=== PATIENT | male | born 1955 | race Caucasian/White ===

== ENCOUNTER 2021-03-02 14:46 | Inpatient (IN) | payer OTHER ==
[~2021-03-02 14:46] MED LIST: BUDE10.2 IH; CARV12.5 PO; CEFP200T PO; CLOP75TA PO; CRESTOR5 MG PO; DIGO250T3 PO; FURO20TA3 PO; FURO40TA4 PO; LIRA0.6P2 SQ; MAGN250T10 PO; MAGN250T2 PO; METF10007 PO; METR-34 PO; PHEN37.53 PO; POTA20TA4 PO; PROVENTIL HFA6.7 GM IH; SACU1TAB7 PO; WARF10TA PO
[2021-03-02] MEDS ORDERED: ACETAMINOPHEN 650 MG SUPP.RECT. PR PRN (15:15)
[2021-03-02] MEDS ORDERED: MORPHINE SULFATE 4 MG/ML VIAL. IV PRN (15:15)
[2021-03-02] MEDS ORDERED: LORazepam INTENSOL 2 MG/ML ORAL.CONC SL PRN (15:15)
[2021-03-02] MEDS ORDERED: IV NORMAL SALINE 1000ML BAG 1,000 ML IV SCH (16:00)
[2021-03-02] MEDS: MORPHINE SULFATE 30 ML IV PRN ×2 (16:09→19:57)
[2021-03-02] MEDS: ATROPINE 1% OPHTH SOLUTION 5ML BOTTLE. SL PRN ×2 (16:14→17:25)
[2021-03-02] MEDS ORDERED: FUROSEMIDE 20 MG/2 ML VIAL. IVP PRN (18:00)
[2021-03-02 19:35] VITALS: BP 117/58
--- NOTE | 2021-03-02 21:49 | PDOC1 ---
History and Physical Date of Admission Date of Admission DATE: 03/02/21 TIME: 16:49 Identification/Chief Complaint Chief Complaint Vfib arrest Source Source: Caregiver, Chart review History of Present Illness History of Present Illness Mr. Velez, is a 65-year-old male w/ PMhx CAD s/p stenting, ETOH abuse, COPD, narcolepsy, DM2 who was initially transferred to [facility] from [facility] [place] there for over 30 minutes via bystander CPR, then EMS arrived, they found the patient to be in V. fib and underwent unsynchronized cardioversion twice and then was subsequently found in PEA. He received 3 rounds of epi prior to arrival to ED around 1100 on 02/28/2021. Arrived with a Jm device in place which was providing compressions with EMS providing respirations via bagging. The patient was pulseless at first check at [facility] ED, was given epinephrine and CPR, then patient did appear to develop an organized rhythm. On repeat pulse check he did have a pulse. He maintained a pulse for some period of time. He then lost a pulse went back into PEA. He was given additional rounds of epinephrine and compressions. Levophed drip was started. A 7.5 endotracheal tube was placed with no difficulty. Obtained pulse and organized rhythm again. He had not responded. His corneal reflexes were absent. His pupils were fixed. He was transferred to [place] on 02/28/21 in critical condition with family noting he had made it clear he was a DNR/DNI. On 03/01 he was off Levophed. Sedation weaned on vent and family discussed with internal medicine attending and neurology and asked for comfort measures and extubation. On 03/02 is seen on medical darling, no meaningful responses today. Non-reactive pupils, no corneal reflex. Rapid shallow breathing, no cough. Afebrile. He is receiving q 1 hour morphine and prn tylenol for fever. Family bedside. Past Medical History Cardiovascular: CAD, HTN, MT Pulmonary: COPD GI: Other Psych: Anxiety, Depression Endocrine: Diabetes Past Surgical History Past Surgical History: Other Family History Family History: Diabetes Social History Smoke: <1 pack per day ALCOHOL: other Drugs: None Current Medications Current Medications Current Medications Acetaminophen (Tylenol Supp) 650 mg PRN Q4HRS PRN HI MILD PAIN / TEMP > 100.3'F; Start 03/02/21 at 15:15 Lorazepam (Ativan Intensol) 2 mg PRN Q4HRS PRN SL ANXIETY / AGITATION Last administered on 03/02/21at 17:25; Start 03/02/21 at 15:15 Atropine Sulfate (Isopto Atropine) 1 drop PRN Q2HR PRN SL SECRETIONS Last administered on 03/02/21at 17:25; Start 03/02/21 at 15:15 Morphine Sulfate (Morphine Sulfate) 4 mg PRN Q1HR PRN IV PAIN; Start 03/02/21 at 15:15 Scopolamine (Transderm-Scop) 1 patch Q3DAYS TD ; Start 03/05/21 at 09:00 Sodium Chloride 1,000 ml @ 25 mls/hr Q24H IV Last administered on 03/02/21at 16:07; Start 03/02/21 at 16:00 Morphine Sulfate 30 ml @ 0 mls/hr CONT PRN PRN IV PER PROTOCOL Last administered on 03/02/21at 19:57; Start 03/02/21 at 16:00 Furosemide (Lasix) 20 mg PRN DAILY PRN IVP FLUID RETENTION Last administered on 03/02/21at 18:11; Start 03/02/21 at 18:00 Active Scripts Active Reported Cefpodoxime Proxetil 200 Mg Tablet 1 Tab PO BID Metronidazole 500 Mg Tablet 1 Tab PO BID Proventil Hfa Inhaler (Albuterol Sulfate) 6.7 Gm Hfa.aer.ad 1 Puff IH PRN Q6HRS PRN Symbicort 160-4.5 Mcg Inhaler (Budesonide/Formoterol Fumarate) 10.2 Gm Hfa.aer.ad 2 Puff IH BID Magnesium (Magnesium Oxide) 250 Mg Tablet 500 Mg PO HS Magnesium 250 Mg Tablet 250 Mg PO DAILY08 Potassium Chloride (Potassium Chloride) 20 Meq Tablet.er 40 Meq PO HS Potassium Chloride (Potassium Chloride) 20 Meq Tablet.er 20 Meq PO DAILY08 Furosemide 40 Mg Tablet 1 Tab PO DAILY16 Furosemide 20 Mg Tablet 1 Tab PO DAILY Metformin Hcl 1,000 Mg Tablet 1 Tab PO BID Entresto 49 mg-51 mg Tablet (Sacubitril/Valsartan) 1 Each Tablet 1 Each PO BID Coreg (Carvedilol) 12.5 Mg Tablet 1 Tab PO BID Crestor (Rosuvastatin Calcium) 5 Mg Tablet 5 Mg PO HS Clopidogrel (Clopidogrel Bisulfate) 75 Mg Tablet 1 Tab PO DAILY16 Jantoven (Warfarin Sodium) 10 Mg Tablet 10 Mg PO DAILY16 Digoxin 250 Mcg Tablet 1 Tab PO DAILY16 Victoza 3-Servando (Liraglutide) 0.6 Mg/0.1 Ml Pen.injctr 1.2 Mg SQ DAILYBFRSUP Phentermine Hcl 37.5 Mg Capsule 2 Cap PO DAILY10 Allergies Allergies: Coded Allergies: No Known Drug Allergies (Unverified , 06/29/16) ROS Review of System Not responsive, unable to obtain ROS Physical Exam General: mild distress HEENT: Atraumatic, Mucous membr. moist/pink Lungs: Other (Left sided rhonchi) Heart: S1S2, RRR, no thrills, no rubs Abdomen: Normal bowel sounds, Soft, No tenderness, No hepatosplenomegaly, No masses Rectal Exam: not examined Extremities: No clubbing, No cyanosis, No edema, Normal pulses, No tenderness/swelling Skin: No rashes, No breakdown, No significant lesion Neuro: Other (Positive babinski, negative gag, no pupillary reflex) Psych/Mental Status: Other (Not responsive) Vitals Vitals Vital Signs Date Time Temp Pulse Resp B/P (MAP) Pulse Ox O2 Delivery O2 Flow Rate FiO2 03/02/21 19:57 18 03/02/21 19:35 98.1 100 117/58 (77) 90 Nasal Cannula 2.0 98.1 VTE Prophylaxis Ordered VTE Prophylaxis Devices: No VTE Pharmacological Prophylaxi: No Assessment/Plan Assessment/Plan A/P Cardiac arrest - V fib arrest in field, with hypotension. On comfort measures with plan to transition to inpatient hospice referral today. PRN morphine for respiratory distress, ativan SL for agitation, seizures, atropine SL for secretions Acute systolic CHF - was on levophed, weaned. PRN O2 and PRN lasix Dm2, poor control, started insulin gtt, stopped for comfort measures COPD - prn nebs for respiratory distress prior alcohol abuse - ativan prn withdrawal seizures Dispo - inpatient hospice appropriate. Will need increase in morphine with increased respirations Justifications for Admission Other Justification KLEBER ANDREWS MD March 02, 2021 21:49
--- NOTE | 2021-03-03 00:44 | NUR ---
This RN was rounding just before 8 p.m., upon entering the room to replace the [employer] pump the patient was found unresponsive. This RN checked for a pulse at this time, was unable to find a carotid, radial or dorsalis pedis pulse at this time. This RN notified Parminder Mckeon and together patient was assessed again, both of us listened for breath sounds for one minute each, unable to find any at this time. Time of noted to be 1956, verified by the two RN's. At this time greenhouse staff, [facility] news production assistant nurse, hospitalist Dr. Pierce were notified. The family was notified as well at this time. Family came to hospital to visit with the patient at around 10pm. The patient was transferred to the [facility] [place] at 2359 hours.
--- NOTE | 2021-03-03 01:17 | PDOC3 ---
Discharge Summary Visit Information Date of Admission: March 02, 2021 Date of Discharge: March 02, 2021 Admitting Diagnosis: Vfib arrest Final Diagnosis Vfib arrest Brief Hospital Course Allergies Allergies Coded Allergies Type Severity Reaction Last Updated Verified No Known Drug Allergies 06/29/16 No Vital Signs Vital Signs Date Time Temp Pulse Resp B/P (MAP) Pulse Ox O2 Delivery O2 Flow Rate FiO2 03/02/21 20:27 18 90 03/02/21 20:00 Room Air 03/02/21 19:35 98.1 100 117/58 (77) 2.0 98.1 Brief Hospital Course Mr. Velez, is a 65-year-old male w/ PMhx CAD s/p stenting, ETOH abuse, COPD, narcolepsy, DM2 who was initially transferred to [facility] from [facility]. He collapsed today [place] and was resuscitated there for over 30 minutes via bystander CPR, then EMS arrived, they found the patient to be in V. fib and underwent unsynchronized cardioversion twice and then was subsequently found in PEA. He received 3 rounds of epi prior to arrival to ED around 1100 on 02/28/2021. Arrived with a Jm device in place which was providing compressions with EMS providing respirations via bagging. The patient was pulseless at first check at [facility] ED, was given epinephrine and CPR, then patient did appear to develop an organized rhythm. On repeat pulse check he did have a pulse. He maintained a pulse for some period of time. He then lost a pulse went back into PEA. He was given additional rounds of epinephrine and compressions. Levophed drip was started. A 7.5 endotracheal tube was placed with no difficulty. Obtained pulse and organized rhythm again. He had not responded. His corneal reflexes were absent. His pupils were fixed. He was transferred to [place] on 02/28/21 in critical condition with family noting he had made it clear he was a DNR/DNI. On 03/01 he was off Levophed. Sedation weaned on vent and family discussed with internal medicine attending and neurology and asked for comfort measures and extubation. On 03/02 is seen on medical darling, no meaningful responses today. Non-reactive pupils, no corneal reflex. Rapid shallow breathing, no cough. Afebrile. He is receiving q 1 hour morphine and prn tylenol for fever. Throughout the day became febrile and respirations increased to 45 and morphine MANAGER MEAT added for patient comfort and respiratory rate was controlled. At 1956 nursing staff notified MD of no spontaneous respirations, pulseless and no cardiac activity for 1956 time of on 03/02/2021. Problem list: Cardiac arrest - V fib arrest in field Acute systolic CHF Dm2, poor control COPD H/o alcohol abuse Greater than 30 minutes spent in patient care on day of patient . Discharge Information Condition at Discharge: / Disposition/Orders: Scheduled Budesonide/Formoterol Fumarate (Symbicort 160-4.5 Mcg Inhaler) 10.2 Gm Hfa.aer.ad, 2 PUFF IH BID, #10.6 Ref 3 (Reported) Entered as Reported by: ROSELIA ARTIS on 06/29/16201 Carvedilol (Coreg ) 12.5 Mg Tablet, 1 TAB PO BID, #180 Ref 1 (Reported) Entered as Reported by: ROSELIA ARTIS on 06/29/16201 Cefpodoxime Proxetil (Cefpodoxime Proxetil) 200 Mg Tablet, 1 TAB PO BID, #14 (Reported) Entered as Reported by: ACACIA CAMPBELL on 07/02/16 1301 Clopidogrel Bisulfate (Clopidogrel) 75 Mg Tablet, 1 TAB PO DAILY16, #90 Ref 1 (Reported) Entered as Reported by: ROSELIA ARTIS on 06/29/16201 Digoxin (Digoxin) 250 Mcg Tablet, 1 TAB PO DAILY16, #30 Ref 5 (Reported) Entered as Reported by: ROSELIA ARTIS on 06/29/16201 Furosemide (Furosemide) 20 Mg Tablet, 1 TAB PO DAILY, #90 Ref 1 (Reported) Entered as Reported by: ROSELIA ARTIS on 06/29/16201 Furosemide (Furosemide) 40 Mg Tablet, 1 TAB PO DAILY16, #30 Ref 5 (Reported) Entered as Reported by: ROSELIA ARTIS on 06/29/16201 Liraglutide (Victoza 3-Servando) 0.6 Mg/0.1 Ml Pen.injctr, 1.2 MG SQ DAILYBFRSUP, #9 Ref 3 (Reported) Entered as Reported by: ROSELIA ARTIS on 06/29/16201 Magnesium (Magnesium) 250 Mg Tablet, 250 MG PO DAILY08, (Reported) Entered as Reported by: ROSELIA ARTIS on 06/29/16201 Magnesium Oxide (Magnesium) 250 Mg Tablet, 500 MG PO HS, (Reported) Entered as Reported by: ROSELIA ARTIS on 06/29/16201 Metformin Hcl (Metformin Hcl) 1,000 Mg Tablet, 1 TAB PO BID, #60 Ref 5 (Reported) Entered as Reported by: ROSELIA ARTIS on 06/29/16201 Metronidazole (Metronidazole) 500 Mg Tablet, 1 TAB PO BID, #14 (Reported) Entered as Reported by: ACACIA CAMPBELL on 07/02/16 1301 Phentermine Hcl (Phentermine Hcl) 37.5 Mg Capsule, 2 CAP PO DAILY10, #30 Ref 2 (Reported) Entered as Reported by: ROSELIA ARTIS on 06/29/16201 Potassium Chloride (Potassium Chloride ) 20 Meq Tablet.er, 20 MEQ PO DAILY08, (Reported) Entered as Reported by: ROSELIA ARTIS on 06/29/16201 Potassium Chloride (Potassium Chloride ) 20 Meq Tablet.er, 40 MEQ PO HS, (Reported) Entered as Reported by: ROSELIA ARTIS on 06/29/16201 Rosuvastatin Calcium (Crestor) 5 Mg Tablet, 5 MG PO HS for FOR CHOLESTEROL, #30 Ref 0 (Reported) Entered as Reported by: ROSELIA ARTIS on 06/29/16201 Sacubitril/Valsartan (Entresto 49 mg-51 mg Tablet) 1 Each Tablet, 1 EACH PO BID, (Reported) Entered as Reported by: ROSELIA ARTIS on 06/29/16201 Warfarin Sodium (Jantoven) 10 Mg Tablet, 10 MG PO DAILY16, (Reported) Entered as Reported by: ROSELIA ARTIS on 06/29/16201 Scheduled PRN Albuterol Sulfate (Proventil Hfa Inhaler) 6.7 Gm Hfa.aer.ad, 1 PUFF IH PRN Q6HRS PRN for SHORTNESS OF BREATH, Ref 0 (Reported) Entered as Reported by: ROSELIA ARTIS on 06/29/16201 Justicifation of Admission Dx: Justifications for Admission: Justification of Admission Dx: Yes CHF: Cardiac Arrhythmias KLEBER ANDREWS MD March 03, 2021 01:17
[2021-03-05] MEDS ORDERED: SCOPOLAMINE 1.5MG PATCH. TD SCH (09:00)
== END 2021-03-02 23:59 | DRG 308 ==
LOC: 4 NORTH 14:46
PROVIDERS: ADMIT Internal Medicine; ATTEND Internal Medicine
DX: I49.01 Ventricular fibrillation (principal); I50.23 Acute on chronic systolic (congestive) heart failure; E11.9 Type 2 diabetes mellitus without complications; F10.10 Alcohol abuse, uncomplicated; F17.210 Nicotine dependence, cigarettes, uncomplicated; G47.419 Narcolepsy without cataplexy; I11.0 Hypertensive heart disease with heart failure; I25.10 Atherosclerotic heart disease of native coronary artery without angina pectoris; I46.2 Cardiac arrest due to underlying cardiac condition; J44.9 Chronic obstructive pulmonary disease, unspecified; Z51.5 Encounter for palliative care; Z66 Do not resuscitate; Z79.01 Long term (current) use of anticoagulants; Z79.51 Long term (current) use of inhaled steroids; Z79.84 Long term (current) use of oral hypoglycemic drugs; Z79.899 Other long term (current) drug therapy; Z83.3 Family history of diabetes mellitus; Z95.5 Presence of coronary angioplasty implant and graft; F32.9 Major depressive disorder, single episode, unspecified; F41.9 Anxiety disorder, unspecified
CPT/HCPCS: J1940; J2270; J7030; G0378